=== PATIENT | male | born 1995 | race African-American/Black ===

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

== ENCOUNTER 2020-03-04 08:22 | Emergency (ER) | payer OTHER ==
[2020-03-04 08:29] VITALS: BP 132/89; PULSE 68; TEMP 97.9; BMI 19.2
[2020-03-04] MEDS ORDERED: METHOCARBAMOL 500 MG TABLET ONE (08:43)
[2020-03-04] MEDS ORDERED: NAPROXEN 500 MG TABLET PO ONE (08:43)
[2020-03-04] MEDS ORDERED: METHOCARBAMOL 500 MG TABLET PO ONE (08:43)
[2020-03-04] MEDS ORDERED: NAPROXEN 500 MG TABLET ONE (08:44)
== END 2020-03-04 08:50 | disposition home or self-care (01) ==
LOC: JERFT 08:22
DX: M62.831 Muscle spasm of calf (principal); M79.652 Pain in left thigh
CPT/HCPCS: 99283-25

== ENCOUNTER 2023-02-02 04:05 | Emergency (ER) | payer OTHER ==
[2023-02-02 04:15] VITALS: BP 105/74; PULSE 68; RESP 18; TEMP 97.9; BMI 17.9
[2023-02-02] MEDS ORDERED: ACETAMINOPHEN 500 MG TABLET (FP) PO ONE (04:26)
[2023-02-02] MEDS ORDERED: IBUPROFEN 600 MG TABLET (FP) PO ONE (05:04)
[2023-02-02] MEDS ORDERED: ACETAMINOPHEN 325 MG TABLET (FP) ONE (05:07)
[2023-02-02 05:53] LABS: CHLORIDE 107 mmol/L (98-107); POTASSIUM 3.8 mmol/L (3.5-5.1); SODIUM 141 mmol/L (136-145)
[2023-02-02 05:55] LABS: ALBUMIN 3.9 g/dl (3.4-5.0); ANION GAP 4 mmol/L (4-13); BLOOD UREA NITROGEN 16.1 mg/dL (7-18); CO2 31 mmol/L (21-32)
[2023-02-02 05:56] LABS: GLUCOSE,RANDOM 91 mg/dL (74-106)
[2023-02-02 05:58] LABS: CREATININE 1.1 mg/dL (0.55-1.3); SGOT/AST 19 U/L (15-37); SGPT/ALT 20 U/L (13-61)
[2023-02-02 06:00] LABS: BILIRUBIN,TOTAL 0.4 mg/dL (0.2-1); TOT PROT 7.3 g/dl (6.4-8.2)
[2023-02-02 06:01] LABS: ALK PHOS 87 U/L (45-117)
[2023-02-02 07:18] LABS: BASO % 1.1 % (0-2.0); EOS % 7.4 % (0-4.5); HEMATOCRIT 43.6 % (35.4-49); HEMOGLOBIN 13.3 GM/dL (11.7-16.9); LYMPH % 34.5 % (8-40); MCH 21.9 pg (25.7-33.7); MCHC 30.5 g/dl (32.0-35.9); MEAN CELL VOLUME 71.8 fl (80-96); MEAN PLT VOLUME 8.7 fl (7.5-11.1); MONO % 9.7 % (3.8-10.2); NEUT % 47.3 % (42.8-82.8); PLATELET COUNT 195 10^3/uL (134-434); RBC 6.07 M/mm3 (4.00-5.60)
[2023-02-02 09:42] LABS: ERYTHROCYTE SEDIMENTATION RATE 2 mm/hr (0-10)
[2023-02-02 09:47] LABS: ANISOCYTOSIS 1+; MACROCYTOSIS 0; OVALOCYTE 1+
== END 2023-02-02 07:55 | disposition home or self-care (01) ==
LOC: JER 04:05
DX: R07.89 Other chest pain (principal)
CPT/HCPCS: 36415; 71046-TC-FY; 80053; 82550; 82553; 84484; 85025; 85651; 86140; 93005; 93010; 99285-25